=== PATIENT | male | born 1960 | race Caucasian/White ===

== ENCOUNTER 2021-02-16 10:41 | Day surgery (SDC) | payer SELFPAY ==
--- NOTE | 2021-02-16 07:55 | HP ---
DATE OF SURGERY: 02/16/2021 HISTORY OF PRESENT ILLNESS: The patient presents with a posterior neck mass in the upper central neck. The patient said it has been there for some time about 6 years. The patient had other cysts and boils in the past. The patient desires removal. PAST MEDICAL HISTORY: None reported. PAST SURGICAL HISTORY: Rotator cuff. ALLERGIES: NKDA. MEDICATIONS: None reported. FAMILY HISTORY: None reported. SOCIAL HISTORY: None reported. REVIEW OF SYSTEMS: CONSTITUTIONAL: Denies fever or chills. CHEST: Denies shortness of breath. CVS: Denies chest pain. ABDOMEN: Denies abdominal pain. INTEGUMENTARY: Posterior neck mass. PHYSICAL EXAMINATION: GENERAL: No acute distress. CHEST: Nonlabored. No shortness of breath. CVS: Regular rate and rhythm. ABDOMEN: Soft. INTEGUMENARY: Posterior neck mass consistent with subcutaneous sebaceous cyst. IMPRESSION: Posterior neck mass. PLAN: Excision of posterior neck mass with Dr. Efren Canas. As dictated by Nafisa Vora NP.
[~2021-02-16 10:41] MED LIST: Lactated Ringers 1,000 ML IV ONE; Sensorcaine 0.25% 10 ML ONE
[2021-02-16] MEDS ORDERED: Reglan 10 MG/2 ML IV ONE (10:56)
[2021-02-16] MEDS ORDERED: Versed 2 MG/2 ML Injection IV ONE (11:00)
[2021-02-16] MEDS ORDERED: CEFAZOLIN 2 GM-D5W BAG** 2 GM/50 ML ML IV SCH (11:00)
[2021-02-16] MEDS ORDERED: Lactated Ringers 1,000 ML IV ONE (11:02)
[2021-02-16] MEDS ORDERED: Lactated Ringers 1,000 ML IV SCH (11:30)
[2021-02-16] MEDS ORDERED: Quelicin Fliptop 200 MG/10 ML ONE (11:57)
[2021-02-16] MEDS ORDERED: Xylocaine-Mpf 2% 5 Ml Vial ONE (11:57)
[2021-02-16] MEDS ORDERED: DIPRIVAN 200 MG/20 ML IV ONE (11:57)
[2021-02-16] MEDS ORDERED: Decadron 4 MG INJ ONE (11:57)
[2021-02-16] MEDS ORDERED: Zofran 4 MG/2 ML VIAL ONE (11:57)
[2021-02-16] MEDS ORDERED: SUBLIMAZE 100 MCG/2 ML ONE (11:59)
[2021-02-16] MEDS ORDERED: TORAdol 30 mg Injection ONE (12:00)
[2021-02-16] MEDS ORDERED: Pre-Attached Lta Kit TP ONE (12:03)
[2021-02-16] MEDS ORDERED: Ephedrine Sulfate 50 MG/ML ONE (12:16)
[2021-02-16] MEDS ORDERED: Narcan 0.4 MG/ML ONE (12:58)
[2021-02-16 14:02] VITALS: BP 123/92
[2021-02-16 14:14] VITALS: PULSE 53; O2SAT 94
--- NOTE | 2021-02-16 15:11 | OP ---
SURGERY DATE/TIME: 02/16/2021 1203 PREOPERATIVE DIAGNOSIS: Posterior neck mass. POSTOPERATIVE DIAGNOSIS: Posterior neck mass, 12 x 10 cm in size. PROCEDURE: Excision and closure of 12 x 10 cm lipoma. SURGEON: Efren Canas M.D. ANESTHESIA: General. COMPLICATIONS: None. CONDITION: Stable. INDICATION: The patient has a growing symptomatic lipoma on the back of the neck. It is fairly symmetrical. It lays transversely. It lays just at the upper thoracic back just below the cervical neck. DESCRIPTION OF PROCEDURE: He is taken to surgery. Laid sideways to the left. Routine prep and drape. A 2 inch transverse incision. It was unilocular. With care and patience was able to be totally developed and removed in toto. Hemostasis satisfactory. Closed with two layers of 3-0 Vicryl, a deeper layer and a superficial layer. A drain was placed. The patient tolerated the procedure satisfactorily.
== END 2021-02-16 14:25 | disposition home or self-care (01) ==
LOC: SDC 10:41
PROVIDERS: ATTEND Surgery
DX: D17.0 Benign lipomatous neoplasm of skin and subcutaneous tissue of head, face and neck (principal)
CPT/HCPCS: 88304; J0330; J0690; J1100; J1885; J2250; J2310; J2405; J2704; J3010